=== PATIENT | female | born 1990 | race Caucasian/White ===

== ENCOUNTER 2019-01-29 20:44 | Inpatient (IN) | payer OTHER ==
[~2019-01-29] VITALS: Ht 160 cm; Wt 88.3 kg
[~2019-01-29 20:44] MED LIST: PREN-19 PO; URSO250T10 PO; URSO300C3 PO
[2019-01-30] MEDS ORDERED: LACTATED RINGER'S 1,000 ML IV PRN (01:26)
[2019-01-30] MEDS ORDERED: OXYTOCIN 30 UNITS/LR 500 ML IV PRN (01:30)
[2019-01-30] MEDS ORDERED: IBUPROFEN 600 MG TAB PO PRN (01:30)
[2019-01-30] MEDS ORDERED: METHYLERGONOVINE 0.2 MG INJ IM PRN (01:30)
[2019-01-30] MEDS ORDERED: MINERAL OIL LIGHT 10 ML VIAL TOP PRN (01:30)
[2019-01-30] MEDS ORDERED: BUTORPHANOL 2 MG INJ IV PRN ×2 (01:30)
[2019-01-30] MEDS ORDERED: MISOPROSTOL 200 MCG TAB PR PRN (01:30)
[2019-01-30] MEDS ORDERED: CARBOPROST 250 MCG INJ IM PRN (01:30)
[2019-01-30] MEDS ORDERED: LIDOCAINE 1% (MPF) 30 ML INJ INJ PRN (01:30)
[2019-01-30] MEDS ORDERED: OXYTOCIN 30 UNITS/LR 500 ML IV SCH ×3 (01:30→09:30)
[2019-01-30 01:36] VITALS: Ht 160 cm; Wt 88.3 kg
[2019-01-30] MEDS ORDERED: AMPICILLIN 2 GM/NS (PMX) 100 ML IV ONE (02:00)
[2019-01-30] MEDS: LACTATED RINGER'S 1,000 ML IV SCH ×3 (02:11→20:53)
[2019-01-30] MEDS: MISOPROSTOL 50 MCG CAPSULE PO SCH ×6 (03:12→21:30)
[2019-01-30] MEDS ORDERED: AMPICILLIN 1 GM/NS (PMX) 50 ML IV SCH (06:00)
[2019-01-30] MEDS: URSODIOL 300 MG CAP PO SCH ×2 (09:24→20:54)
[2019-01-30] MEDS ORDERED: DIPHENHYDRAMINE 25 MG CAP PO PRN (09:30)
[2019-01-30] MEDS ORDERED: FENTAnyl 2MCG/ML-ROPIV 0.2% 100 ML ONE (11:19)
[2019-01-30] MEDS ORDERED: FENTAnyl 2MCG/ML-ROPIV 0.2% 100 ML BAG EPI SCH (12:30)
[2019-01-30] MEDS ORDERED: NALOXONE (0.4 MG/ML) INJ IV PRN (12:30)
[2019-01-30] MEDS: FERROUS SULFATE (EC) 325 MG TAB PO SCH ×2 (15:54→20:55)
[2019-01-30] MEDS: ASCORBIC ACID 500 MG TAB PO SCH ×2 (15:55→20:53)
[2019-01-30] MEDS ORDERED: CLINDAMYCIN 900 MG (PMX) 50 ML IVPB ONE (20:09)
[2019-01-30] MEDS ORDERED: ONDANSETRON 4 MG INJ IV PRN (23:00)
[2019-01-31] MEDS ORDERED: OXYTOCIN 30 UNITS/LR 500 ML IV SCH (00:06)
[2019-01-31] MEDS ORDERED: LANOLIN HPA 1 PKT TOP PRN (00:30)
[2019-01-31] MEDS ORDERED: CARBOPROST 250 MCG INJ IM PRN (00:30)
[2019-01-31] MEDS ORDERED: NACL 0.9% 3 ML SYG IV SCH (00:30)
[2019-01-31] MEDS ORDERED: MISOPROSTOL 200 MCG TAB PR PRN (00:30)
[2019-01-31] MEDS ORDERED: OXYTOCIN 30 UNITS/LR 500 ML IV PRN (00:30)
[2019-01-31] MEDS ORDERED: METHYLERGONOVINE 0.2 MG INJ IM PRN (00:30)
[2019-01-31 00:40] VITALS: BP 128/51; PULSE 88
[2019-01-31] MEDS: LACTATED RINGER'S 1,000 ML IV SCH ×3 (01:26→17:26)
[2019-01-31] MEDS: IBUPROFEN 800 MG TAB PO SCH ×4 (03:25→22:49)
[2019-01-31 03:59] VITALS: BP 110/70; PULSE 74; RESP 18
[2019-01-31] MEDS ORDERED: IBUPROFEN 800 MG TAB PO SCH (06:00)
[2019-01-31 08:00] VITALS: BP 100/61; PULSE 71; RESP 16
[2019-01-31] MEDS: FERROUS SULFATE (EC) 325 MG TAB PO SCH ×3 (08:56→22:49)
[2019-01-31] MEDS: ASCORBIC ACID 500 MG TAB PO SCH ×3 (08:56→22:48)
[2019-01-31] MEDS: URSODIOL 300 MG CAP PO SCH ×2 (08:56→22:49)
[2019-01-31 16:00] VITALS: BP 119/86; PULSE 72; RESP 16; RESP 20
[2019-01-31 20:00] VITALS: BP 105/69; PULSE 70; RESP 16
[2019-02-01] MEDS: LACTATED RINGER'S 1,000 ML IV SCH ×2 (01:26→09:26)
[2019-02-01] MEDS: IBUPROFEN 800 MG TAB PO SCH ×2 (03:20→09:20)
[2019-02-01 03:34] VITALS: BP 114/76; PULSE 69; RESP 18
[2019-02-01 08:00] VITALS: BP 127/63; PULSE 65; RESP 18
[2019-02-01] MEDS: FERROUS SULFATE (EC) 325 MG TAB PO SCH ×2 (08:48→12:33)
[2019-02-01] MEDS: ASCORBIC ACID 500 MG TAB PO SCH ×2 (08:48→12:33)
[2019-02-01] MEDS: URSODIOL 300 MG CAP PO SCH (08:48)
== END 2019-02-01 16:23 | disposition home or self-care (01) | DRG 805 ==
LOC: L-D 20:44 → PP1 01-31 01:37 → EDSTATUS 02-11 20:42
PROVIDERS: ADMIT Specialist; ATTEND Specialist
PROC: 3E0P7GC Introduction of Other Therapeutic Substance into Female Reproductive, Via Natural or Artificial Opening (ICD-10-PCS; 2019-01-30)
PROC: 10E0XZZ Delivery of Products of Conception, External Approach (ICD-10-PCS; principal; 2019-01-31)
PROC: 0HQ9XZZ Repair Perineum Skin, External Approach (ICD-10-PCS; 2019-01-31)
DX: O26.62 Liver and biliary tract disorders in childbirth (principal); K83.1 Obstruction of bile duct; Z37.0 Single live birth; O70.0 First degree perineal laceration during delivery; Z3A.38 38 weeks gestation of pregnancy
CPT/HCPCS: 62322; 80053; 82728; 83540; 83789; 85014; 85018; 85025; 85610; 85730; 86592; 86850; 86900; 86901; 87340; J0290; J2405; J2590; J3010; J7120